=== PATIENT | female | born 1935 | race Caucasian/White ===

== ENCOUNTER → 2024-03-26 12:00 | Outpatient (REF) | payer MEDICARE, OTHER, SELFPAY ==
[2024-03-26 14:02] LABS: Urine Albumin Negative (Neg - Trace); Urine Bilirubin Negative (Negative); Urine Character Clear (Clear); Urine Color Yellow; Urine Glucose Negative (Negative); Urine Ketone Negative (Negative); Urine Leukocyte Trace (Negative); Urine Nitrite Negative (Negative); Urine Occult Blood Negative (Negative); Urine Urobilinogen Negative (Neg - 1+)
[2024-03-26 14:51] LABS: Urine Bacteria Few (Negative); Urine Red Blood Cell 0-2 /HPF (0-2)
== END ==
LOC: RAD 12:00
PROVIDERS: ATTENDING PHYSICIAN Nurse Practitioner; FAMILY PHYSICIAN Internal Medicine
DX: N39.0 Urinary tract infection, site not specified (principal)
CPT/HCPCS: 81003; 81015; 87086

== ENCOUNTER → 2024-04-05 07:03 | Outpatient (REF) | payer MEDICARE, OTHER, SELFPAY | LOC: HWRCS 07:03 | PROVIDERS: ATTENDING PHYSICIAN Internal Medicine Cardiovascular Disease; FAMILY PHYSICIAN Internal Medicine | DX: I49.3 Ventricular premature depolarization (principal); I44.7 Left bundle-branch block, unspecified | CPT/HCPCS: 93306 ==

== ENCOUNTER → 2024-10-17 13:12 | Outpatient (REF) | payer MEDICARE, OTHER, SELFPAY | LOC: RAD 13:12 | PROVIDERS: ATTENDING PHYSICIAN Internal Medicine Cardiovascular Disease; FAMILY PHYSICIAN Internal Medicine | DX: I65.23 Occlusion and stenosis of bilateral carotid arteries (principal) | CPT/HCPCS: 93880 ==

== ENCOUNTER 2025-07-31 07:10 | Emergency (ER) | payer OTHER, SELFPAY ==
[2025-07-31 07:12] VITALS: BP 177/100
--- NOTE | 2025-07-31 07:33 | ED.GENMED ---
History of Present Illness
General
Chief Complaint: Cardiac Symptoms
Time Seen by Provider: 07/31/25 07:18
History of Present Illness
History of Present Illness:
89 yo female presents for evaluation of palpitations. Pt states that several weeks ago she developed intermittent lightheadedness/dizziness, this was felt to be due to her atenolol. Once stopping this, she began to have occasional palpitations; saw
cardiology and was placed on a 14d Holter monitor. Wore this for 6 days, removed yesterday due to itching from the adhesive, and the monitor was mailed back to the director telecommunications, thus results are not yet available. Awoke today with palpitations, no
chest pain/SOB/dizziness, and promptly took her atenolol. No recent fevers. Denies stimulant drug use. Has taken all her other meds this AM.
Past History
Past History
ED Past Medical History: HTN and Hypercholesterolemia
ED Past Surgical History: Appendectomy and Orthopedic
Social History
Tobacco: Non-smoker
Living: other (Independent living)
Employment: Retired
Review of Systems
Review of Systems
Allergies reviewed?: Yes
All Other Systems: ROS reviewed and negative except as documented in HPI and ROS
Phy Exam
Physical Exam
Physical Exam:
GEN: Well appearing, NAD, WDWN
HEENT: Oral mucosa moist, no scleral icterus
Cardiac: Regular rate and rhythm, no murmur
Lung: No respiratory distress, no tachypnea, lungs CTAB
MSK: No gross deformity or injuries
Skin: Good color, no pallor or jaundice, no rashes
Neuro: AO x3, moves all extremities freely
Psych: Calm, cooperative
Course
Orders/Labs/Results
Orders:
Orders
07/31/25 07:16
Electrocardiogram (*1) Urgent
Reason for Study: Palpitations
EKG- Treatment ONCE
07/31/25 07:45
Complete Blood Count/No Diff Urgent
Comprehensive Metabolic Panel Urgent
TSH Urgent
Abnormal Lab Results
07/31/25
07:45
MCHC 32.2 L g/dL
(33.0-37.0)
07/31/25 07:45
07/31/25 07:45
Vital Signs
Initial and Last Documented VS:
Initial Vital Signs
Temp Pulse Resp BP Pulse Ox
98.4 F 72 18 177/100 98
07/31/25 07:12 07/31/25 07:12 07/31/25 07:12 07/31/25 07:12 07/31/25 07:12
Last Documented Vital Signs
Temp Pulse Resp BP Pulse Ox
98.4 F 65 20 132/80 98
07/31/25 07:12 07/31/25 08:30 07/31/25 08:30 07/31/25 08:00 07/31/25 07:37
MDM/Problems Addressed
MDM/Problems Addressed:
Patient with no evidence of dysrhythmia on telemetry monitoring, remained asymptomatic in ED. Encouraged her to restart her atenolol until Holter monitor results are available and follow-up with cardiology, CBC and CMP as well as TSH all normal
Comment
Comment:
EKG independently interpreted by me shows a sinus arrhythmia/sinus rhythm with PACs, left bundle branch block, comparable to past EKG from 2021
*Pulse Oximetry
SaO2: 98
Oxygen Mode of Delivery: Room air
Patient hypoxic: no
*Critical Care Note
Total Time (30-74mins, 75-104mins- exclusive of procedures): Not Applicable
ED Attending Note
-
Portions of this chart may have been created with voice recognition software.� Occasional wrong word or��sound alike� substitutions may have occurred due to the inherent limitations of voice recognition software.
Discharge Plan
Departure
Patient Disposition: Home (Routine Discharge)
Date of Disposition: 07/31/25
Time of Disposition: 08:36
Patient with high blood pressure during this ER visit?: No
Discharge Problem:
Heart palpitations
Instructions: Palpitations - ED (DC)
Prescriptions:
No Action
amlodipine 5 mg Tablet
5 mg PO BID
aspirin 81 mg Capsule
81 mg PO DAILY
atenolol 25 mg Tablet
12.5 mg PO DAILY
fexofenadine [Mariama] 180 mg Tablet
180 mg PO DAILY PRN (Reason: allergy symptoms)
lorazepam [Ativan] 0.5 mg Tablet
0.25 mg PO HS PRN (Reason: sleep)
docusate sodium [Colace] 100 mg Capsule
100 mg PO DAILY PRN (Reason: constipation)
polyethylene glycol 3350 [Miralax] 17 gram Powder In Packet
17 g PO DAILY
hydrocortisone [Procto-Med HC] 2.5 % Cream With Perineal Applicator
1 applic [place] DAILY PRN (Reason: rectal pain)
cholecalciferol (vitamin D3) 25 mcg (1,000 unit) Capsule
25 mcg PO DAILY
zinc Tablet,Chewable
10 tab PO DAILY
psyllium husk [Metamucil] 0.52 gram Capsule
0.52 g PO DAILY
Rx Instructions:
takes 5 pills a day
ascorbic acid (vitamin C) 500 mg Capsule
500 mg PO 1XD
Referrals:
Yvonne Ruth MD [Active, Cardiology]
Brien Vázquez DO [Family Provider, Internal Medicine]
Activity Restrictions/Additional Instructions:
Continue your atenolol until follow up with cardiology
Interventions
Interventions:
*Risk Screen - Suicide Last Done: 07/31/25 07:12
*General Assessment Last Done: 07/31/25 07:12
*Neglect/Abuse Screening Last Done: 07/31/25 07:12
*ED- Fall Risk Assessment Last Done: 07/31/25 07:16
ED- Pulmonary Assessment Last Done: 07/31/25 07:16
ED- Cardiac Assessment Last Done: 07/31/25 08:00
Discharge Date and Time
Print Language: CZECH
[2025-07-31 07:46] VITALS: BP 156/59
[2025-07-31 08:00] VITALS: BP 132/80
[2025-07-31 08:09] LABS: Hematocrit 39.5 % (37.0-47.0); Hemoglobin 12.7 g/dL (12.0-16.0); Mean Corp Hgb Conc. 32.2 g/dL (33.0-37.0); Mean Corpuscular Volume 88.0 fL (81.0-99.0); Platelet Count 246 10^3/uL (130-400); Red Cell Dist. Width 13.8 % (11.5-14.5)
[2025-07-31 08:16] LABS: ALT (SGPT) 21 U/L (0-35); AST (SGOT) 26 U/L (14-36); Albumin 4.3 g/dl (3.5-5.0); Alkaline Phosphatase 74 U/L (38-126); Blood Urea Nitrogen 13 mg/dl (7-17); Calcium 9.6 mg/dl (8.4-10.2); Carbon Dioxide 26 mmol/L (22-30); Chloride 105 mmol/L (98-107); Glucose 96 mg/dl (70-99); Potassium 4.1 mmol/L (3.5-5.1); Sodium 138 mmol/L (135-145); Total Protein 7.7 g/dl (6.3-8.2); eGFR > 60.00
[2025-07-31 08:46] LABS: TSH 2.83 uIU/ml (0.47-4.68)
== END 2025-07-31 08:40 | disposition home or self-care (01) ==
LOC: EMR 07:10
PROVIDERS: Physician Assistant; EMERGENCY PHYSICIAN Emergency Medicine; FAMILY PHYSICIAN Internal Medicine
DX: R00.2 Palpitations (principal); I44.7 Left bundle-branch block, unspecified; I49.1 Atrial premature depolarization; I10 Essential (primary) hypertension; E78.00 Pure hypercholesterolemia, unspecified
CPT/HCPCS: 99284; 80053; 84443; 85027; 93005